=== PATIENT | male | born 1975 ===

== ENCOUNTER 2023-07-01 08:17 | Outpatient (CLI) | payer OTHER | END 2023-07-01 08:20 | disposition home or self-care (01) | LOC: LAB 08:17 | PROVIDERS: ATTEND Orthopaedic Surgery | DX: I10 Essential (primary) hypertension (principal) ==

== ENCOUNTER 2023-07-08 05:32 | Day surgery (SDC) | payer OTHER ==
[~2023-07-08] VITALS: Ht 180.3 cm; Wt 83.0 kg
[~2023-07-08 05:32] MED LIST: [UNRECOGNIZED DRUG - OTHER] PO
== END 2023-07-08 11:30 | disposition home or self-care (01) ==
LOC: CIR.AMB 05:32
PROVIDERS: ATTEND Orthopaedic Surgery
DX: M75.121 Complete rotator cuff tear or rupture of right shoulder, not specified as traumatic (principal); M75.21 Bicipital tendinitis, right shoulder; M24.111 Other articular cartilage disorders, right shoulder; Z20.822 Contact with and (suspected) exposure to COVID-19